=== PATIENT | male | born 1960 | race Caucasian/White ===

== ENCOUNTER 2021-06-04 20:26 | Emergency (ER) | payer OTHER ==
[~2021-06-04] VITALS: Ht 185.5 cm; Wt 108.9 kg
[2021-06-04] MEDS ORDERED: LACTATED RINGERS 1,000 ML IV ONE ×2 (20:45→22:00)
--- NOTE | 2021-06-04 20:47 | ED Trauma-Multisystem ---
General Stated Complaint: FELL OUT OF HUNTING STAND Activation Level: Level 2 Source of Information: Patient, EMS History of Present Illness Date Seen by Provider: Jun 04, 2021 Time Seen by Provider: 20:25 Initial Comments PT ARRIVES VIA [facility]--CERVICAL COLLAR IN PLACE, BUT NO BACK BOARD PT FELL 12-15 FEET OUT OF TREE STAND/HUNTING DEER--WAS HUNTING ALONE AND NO CELL PHONE STATES HE LANDED FLAT ON HIS BACK DENIES LOSS OF CONSCIOUSNESS DENIES NECK PAIN C/O SEVERE DIFFUSE BACK PAIN, ESPECIALLY LOWER BACK C/O BILATERAL RIB PAIN C/O SHORTNESS OF BREATH NO PARESTHESIAS OR MOTOR DEFICITS NO NAUSEA/VOMITING NO LEG OR ARM PAIN NO ABDOMINAL PAIN EMS REPORT THAT PT WALKED APPROXIMATELY 1/2 MILE OUT OF THE [facility], AND WAS FOUND BY 'S DEPUTY, SITTING IN A DITCH ALONGSIDE A ROAD--IS ESTIMATED THAT HE SAT THERE FOR APPROXIMATELY AN HOUR PT THINKS HE FELL AROUND 1800 TONIGHT. PT STATES HE TOOK A KAYAK INTO THE HUNTING AREA, THEN WALKED OUT. PT HAS HISTORY OF PRIOR LUMBAR SPINE SURGERY, AND LEFT SHOULDER SURGERY LEVEL 2 TRAUMA ACTIVATION PRIOR TO PT'S ARRIVAL PCP: ROSARIO MAGANA IN [place]--PT STATES HE LIVES IN [place] Allergies and Home Medications Allergies Coded Allergies: No Known Drug Allergies (Unverified , 06/04/21) Patient Home Medication List Home Medication List Reviewed: Yes Fluoxetine HCl (Fluoxetine HCl) 40 Mg Capsule, (Reported) Entered as Reported by: JEAN POST on 06/04/212100 Last Action: New Order Modafinil (Modafinil) 100 Mg Tablet, (Reported) Entered as Reported by: JEAN POST on 06/04/212100 Last Action: New Order Review of Systems Review of Systems Constitutional: no symptoms reported Eyes: No Symptoms Reported Ears: No Symptoms Reported Nose: No Symptoms Reported Mouth: No Symptoms Reported Throat: No Symptoms to Report Respiratory: see HPI, short of breath Cardiovascular: See HPI Gastrointestinal: no symptoms reported; No abdominal pain, No nausea, No vomiting Musculoskeletal: see HPI, back pain Skin: no symptoms reported Psychiatric/Neurological: No Symptoms Reported, Anxiety; Denies Cognitive Dysfunction, Denies Headache, Denies Numbness, Denies Tingling, Denies Weakness Past Unyywyj-Equlgh-Pndelu Hx Patient Social History Tobacco Use?: Yes Tobacco type used: Cigarettes Smoking Status: Current Someday Smoker (1 PACK/WEEK) Alcohol Use?: Yes (2-3 DRINKS, 2-3 TIMES A WEEK) Alcohol Frequency: Couple times a week Past Medical History Surgery/Hospitalization HX: LEFT SHOULDER SURGERY LUMBAR SPINE SURGERY Surgeries: Yes Orthopedic Respiratory: No Cardiac: No Neurological: No Reproductive Disorders: Yes (ED) Genitourinary: Yes (ED) Gastrointestinal: No Musculoskeletal: Yes (LUMBAR SPINE SURGERY, LEFT SHOULDER SURGERY) Chronic Back Pain Endocrine: No HEENT: No Cancer: No Psychosocial: Yes Anxiety, Depression Integumentary: No Blood Disorders: No Physical Exam Vital Signs Vital Signs - First Documented 06/04/21 20:27 Temp 36.0 Pulse 75 Resp 22 B/P (MAP) 142/93 (109) Pulse Ox 95 O2 Delivery Nasal Cannula O2 Flow Rate 2.00 Height, Weight, BMI Height: '" Weight: lbs. oz. kg; BMI Method: General Appearance: Other (MOANING, WAILING, VERY DRAMATIC, TALKING NON-STOP, WANTING WATER HE IS BEING WHEELED IN BY EMS. CLOTHING SOAKED AND PT IS COVERED IN DIRT/MUD; HOSTILE AND DEMANDING. ) Head: No Evidence of Injury Ears, Nose, Throat: Hearing Grossly Normal, No Evidence of ENT Injury, No Dental Injury Neck: Other (CERVICAL COLLAR IN PLACE) Cardiovascular: Regular Rate, Rhythm, No Edema, No JVD, No Murmur Respiratory: Normal Breath Sounds (BREATH SOUNDS EQUAL BILATERALLY), No Accessory Muscle Use, No Respiratory Distress, Other (DIFFUSE BILATERAL CHEST TENDERNESS, BUT NO EXTERNAL EVIDENCE OF TRAUMA, NO CREPITANCE OR SUB Q AIR. ) Gastrointestinal: Soft, Hernia (REDUCIBLE UMBILICAL HERNIA), Tenderness (SIGNIFICANT RUQ AND LUQ TENDERNESS--MORE TENDER IN RIGHT UPPER QUADRANT. NO EXTERNAL EVIDENCE OF TRAUMA TO ABDOMEN) Back: CVA Tenderness (L), CVA Tenderness (R), Decreased Range of Motion, Vertebral Tenderness, Other (DIFFUSE TENDERNESS TO LUMBAR AREA. NO EXTERNAL EVIDENCE OF TRAUMA. NO DEFORMITY. ) Extremity: Normal Capillary Refill, Normal Inspection, Normal Range of Motion, Non Tender, No Calf Tenderness, No Pedal Edema Neurologic/Psychiatric: Alert, Oriented x3, No Motor/Sensory Deficits, stump blower II- XII Norm as Tested Skin: Normal Color, Warm/Dry Focused Exam Lactate Level 06/04/21 20:44: Lactic Acid Level 1.62 Lactic Acid Level Laboratory Tests Test 06/04/21 20:44 Lactic Acid Level 1.62 MMOL/L (0.50-2.00) Progress/Results/Core Measures Results/Orders Lab Results Laboratory Tests Test 06/04/21 20:44 06/04/21 22:12 Range/Units White Blood Count 17.0 H 4.3-11.0 10^3/uL Red Blood Count 4.68 4.30-5.52 10^6/uL Hemoglobin 14.7 13.3-17.7 g/dL Hematocrit 43 40-54 % Mean Corpuscular Volume 93 80-99 fL Mean Corpuscular Hemoglobin 31 25-34 pg Mean Corpuscular Hemoglobin Concent 34 32-36 g/dL Red Cell Distribution Width 12.8 10.0-14.5 % Platelet Count 272 130-400 10^3/uL Mean Platelet Volume 10.2 9.0-12.2 fL Prothrombin Time 13.3 12.2-14.7 SEC INR Comment 1.0 0.8-1.4 Activated Partial Thromboplast Time 22 L 24-35 SEC Fibrinogen 446 221-496 MG/DL D-Dimer 15.42 H 0.00-0.49 UG/ML Sodium Level 147 H 135-145 MMOL/L Potassium Level 4.1 3.6-5.0 MMOL/L Chloride Level 111 H 98-107 MMOL/L Carbon Dioxide Level 23 21-32 MMOL/L Anion Gap 13 5-14 MMOL/L Blood Urea Nitrogen 19 H 7-18 MG/DL Creatinine 1.47 H 0.60-1.30 MG/DL Estimat Glomerular Filtration Rate 49 BUN/Creatinine Ratio 13 Glucose Level 117 H 70-105 MG/DL Lactic Acid Level 1.62 0.50-2.00 MMOL/L Calcium Level 10.2 H 8.5-10.1 MG/DL Phosphorus Level 2.2 L 2.3-4.7 MG/DL Magnesium Level 2.2 1.6-2.4 MG/DL Total Bilirubin 0.5 0.1-1.0 MG/DL Direct Bilirubin 0.2 0.0-0.3 MG/DL Indirect Bilirubin 0.3 MG/DL Aspartate Amino Transf (AST/SGOT) 44 H 5-34 U/L Alanine Aminotransferase (ALT/SGPT) 32 0-55 U/L Alkaline Phosphatase 69 40-136 U/L Total Creatine Kinase 666 H 30-200 U/L Total Protein 7.4 6.4-8.2 GM/DL Albumin 4.4 3.2-4.5 GM/DL Serum Alcohol < 10 <10 MG/DL Urine Color YELLOW Urine Clarity CLEAR Urine pH 6.0 5-9 Urine Specific [place] 1.025 H 1.016-1.022 Urine Protein 2+ H NEGATIVE Urine Glucose (UA) NEGATIVE NEGATIVE Urine Ketones NEGATIVE NEGATIVE Urine Nitrite NEGATIVE NEGATIVE Urine Bilirubin NEGATIVE NEGATIVE Urine Urobilinogen 0.2 < = 1.0 MG/DL Urine Leukocyte Esterase NEGATIVE NEGATIVE Urine RBC (Auto) 2+ H NEGATIVE Urine RBC 5-10 H /HPF Urine WBC 2-5 /HPF Urine Squamous Epithelial Cells 0-2 /HPF Urine Crystals NONE /LPF Urine Calcium Oxalate Crystals MODERATE H /LPF Urine Bacteria TRACE /HPF Urine Casts PRESENT /LPF Urine Hyaline Casts 0-2 H /LPF Urine Mucus SMALL H /LPF Urine Culture Indicated YES Urine Opiates Screen NEGATIVE NEGATIVE Urine Oxycodone Screen NEGATIVE NEGATIVE Urine Methadone Screen NEGATIVE NEGATIVE Urine Propoxyphene Screen NEGATIVE NEGATIVE Urine Barbiturates Screen NEGATIVE NEGATIVE Ur Tricyclic Antidepressants Screen NEGATIVE NEGATIVE Urine Phencyclidine Screen NEGATIVE NEGATIVE Urine Amphetamines Screen NEGATIVE NEGATIVE Urine Methamphetamines Screen NEGATIVE NEGATIVE Urine Benzodiazepines Screen NEGATIVE NEGATIVE Urine Cocaine Screen NEGATIVE NEGATIVE Urine Cannabinoids Screen NEGATIVE NEGATIVE My Orders Orders - GISELLE LOPES DO Ed Iv/Invasive Line Start (06/04/21 20:34) Lactated Ringers (Lr 1000 Ml Iv Solution (06/04/21 20:45) Chest 1 View, Ap/Pa Only (06/04/21 20:36) Pelvis (06/04/21 20:36) Ct Head/Cervical Spine Wo (06/04/21 20:36) Ct Thoracic/Lumbar Spine Wo (06/04/21 20:36) Ct Chest/Abdomen/Pelvis W (06/04/21 20:36) Cbc No Diff (06/04/21 20:44) Fibrin Degradation Products (06/04/21 20:44) Fibrinogen (06/04/21 20:44) Protime With Inr (06/04/21 20:44) Partial Thromboplastin Time (06/04/21 20:44) Alcohol (06/04/21 20:44) Basic Metabolic Panel (06/04/21 20:44) Creatine Kinase (06/04/21 20:44) Liver Panel (06/04/21 20:44) Magnesium (06/04/21 20:44) Phosphorus (06/04/21 20:44) Lactic Acid Analyzer (06/04/21 20:44) Red Cells Leukocytes Reduced (06/04/21 20:44) Type And Screen (06/04/21 20:44) Drug Screen Stat (Urine) (06/04/21 20:55) Urinalysis (06/04/21 20:55) Iohexol Injection (Omnipaque 350 Mg/Ml 1 (06/04/21 21:00) Received Contrast (Hold Metformin- Contr (06/04/21 21:00) Ns (Ivpb) (Sodium Chloride 0.9% Ivpb Bag (06/04/21 21:00) Fentanyl Inj (Sublimaze Injection) (06/04/21 21:19) Ed Iv/Invasive Line Start (06/04/21 21:54) Lactated Ringers (Lr 1000 Ml Iv Solution (06/04/21 22:00) Fentanyl Inj (Sublimaze Injection) (06/04/21 22:15) Urine Culture (06/04/21 22:12) Medications Given in ED Current Medications Medications Dose Ordered Sig/Isaiah Route Start Time Stop Time Status Last Admin Dose Admin Fentanyl Citrate 100 mcg STK-MED ONCE .ROUTE 06/04/21 21:19 06/04/21 21:23 DC 06/04/21 21:20 50 MCG Iohexol 100 ml ONCE ONCE IV 06/04/21 21:00 06/04/21 21:01 DC 06/04/21 21:15 100 ML Lactated Ringer's 1,000 ml @ 0 mls/hr Q0M ONCE IV 06/04/21 20:45 06/04/21 20:46 DC 06/04/21 20:44 0 MLS/HR Lactated Ringer's 1,000 ml @ 0 mls/hr Q0M ONCE IV 06/04/21 22:00 06/04/21 22:01 DC 06/04/21 21:57 0 MLS/HR Sodium Chloride 100 ml ONCE ONCE IV 06/04/21 21:00 06/04/21 21:01 DC 06/04/21 21:15 80 ML Vital Signs/I&O 9/17/21 9/17/21 20:27 23:35 Temp 36.0 36.7 Pulse 75 76 Resp 22 22 B/P (MAP) 142/93 (109) 153/86 Pulse Ox 95 93 O2 Delivery Nasal Cannula Room Air O2 Flow Rate 2.00 Progress Progress Note : Progress Note GIVEN IV FLUIDS GIVEN FENTANYL FOR PAIN --PAIN IMPROVED WITH FENTANYL, AND LAYING STILL. O2 SAT 94% ON ROOM AIR--UP TO 97% ON 2L/NC NO DETERIORATION IN PT'S CONDITION PT REMAINED HOSTILE THROUGHOUT ER STAY, AND PT ADAMANTLY AND REPEATEDLY REFUSES TO ALLOW ME TO EXAMINE HIS BACK, STATES "I'M NOT ROLLING OVER" DID COMPLETELY EXAMINE PT'S BACK PRIOR TO TRANSFER, AND NO EXTERNAL EVIDENCE OF TRAUMA, BUT DIFFUSE LUMBAR TENDERNESS, AND PARAVERTEBRAL TENDERNESS. NO DEFORMITY. Diagnostic Imaging Comments CT SCANS--PER RADIOLOGIST REPORTS AT 2128 CT HEAD/CERVICAL SPINE-- FINDINGS: CT HEAD: Ventricles and sulci are within normal limits for size. There is no intracranial hemorrhage identified. There is no abnormal mass effect or shift of midline structures. IMPRESSION: Unremarkable CT of the head. CT CERVICAL SPINE: Multiple contiguous axial CT images of the cervical spine were obtained with sagittal and coronal reformatted images produced. The cervical curvature and alignment are within normal limits. The vertebral body heights and disc spaces are maintained without evidence of fracture or subluxation. There is no paraspinous hematoma. There is mild diffuse degenerative disc and facet disease most pronounced at the C3-C4 level. IMPRESSION: No CT evidence of acute cervical spinal abnormality. CT THORACIC/LUMBAR SPINE-- FINDINGS: Thoracic spinal curvature and alignment are unremarkable. Thoracic vertebral body heights and disc spaces are maintained without evidence of acute fracture or paraspinous hematoma. There is mild dependent atelectasis in the lungs. Lumbar spinal curvature and alignment are also unremarkable. There are mildly displaced left spinous process fractures from L1 through L5 with mild enlargement of the left psoas muscle indicating psoas muscle hematoma. There is diffuse disc bulging and endplate spurring at L4-L5 resulting in moderate spinal stenosis with a chronic appearance. IMPRESSION: 1. Mildly displaced left transverse process fractures from L1 through L5 with associated left psoas muscle hematoma. 2. There is also chronic appearing L4-L5 spinal stenosis secondary to disc bulging and endplate spurring. 3. No definite acute thoracic spinal abnormality is identified. CT CHEST/ABDOMEN/PELVIS- CT CHEST: There is no evidence of great vessel injury or mediastinal hematoma. No significant pleural or pericardial fluid is identified. There is no pneumothorax. There has been previous surgery in the left scapula. There are mildly displaced bilateral 10th and 11th rib fractures. There is no pneumothorax. IMPRESSION: Bilateral 10th and 11th rib fractures without pneumothorax. Otherwise, no acute thoracic injury is identified. CT ABDOMEN/PELVIS: Probable cysts are present within the left lobe of the liver. No focal liver laceration is identified. There is no evidence of gallbladder, pancreatic, adrenal gland or splenic lesion. There is also probable dominant cyst in the left kidney. Both kidneys excrete contrast without evidence of perinephric hematoma. No adrenal gland abnormality is identified. There is no free fluid within the abdomen or pelvis. There is enlargement of the left psoas muscle compatible with intramuscular hematoma fractures involving L1-L5 left transverse processes. Partially opacified urinary bladder is unremarkable without evidence of perivesicular contrast extravasation. There is lower lumbar degenerative disc disease. Note is made of fat-containing umbilical hernia. IMPRESSION: Left transverse process fractures throughout the lumbar spine with associated left psoas hematoma. Otherwise, no acute abdominal or pelvic visceral injury is identified. XRAYS--PER RADIOLOGIST REPORTS AT 2200 CXR-- Findings: Asymmetric elevation of the right hemidiaphragm. Visualized lungs are clear. No pleural effusion or pneumothorax. There is no abnormal alignment of the cardiac silhouette. No displaced fracture within the clavicles or visualized ribs. Impression: No acute traumatic injury in the chest by portable radiography. PELVIS-- FINDINGS: No diastasis of the symphysis pubis or SI joints. No hip dislocation. Mild degenerative arthritis of the hips. Scattered pelvic phleboliths. No displaced fracture. IMPRESSION: No displaced fracture or traumatic diastasis in the pelvis. Reviewed: Reviewed by [facility] Departure Communication (Admissions) SPOKE WITH POLLS OR SURVEYS INTERVIEWER--NO BEDS ARE AVAILABLE HERE 2135--SPOKE WITH DR. SIN, TRAUMA SURGEON, ADVISES TRANSFER 2136--CALLED [facility] 2140--SPOKE WITH DR. HERNANDEZ, ER PHYSICIAN, ACCEPTS PT FOR TRANSFER 2144--EMS CONTACTED FOR TRANSPORT 2334--EMS HERE FOR TRANSPORT. Impression Primary Impression: S/P FALL FROM TREE STAND Additional Impressions: FALL FROM HUNTING STAND Fracture of multiple ribs of both sides MULTIPLE LUMBAR SPINE TRANSVERSE PROCESS FRACTURES TRAUMATIC LEFT PSOAS MUSCLE HEMATOMA Dehydration Disposition: 02 XFER SHT-TRM HOSP Condition: Stable Transfer Transfer Reason: Diversion Transfer Facility: [place], [place] Method of Transfer: EMS Departure-Patient Inst. Referrals: BIANCA HULL MD (PCP/Family) Primary Care Physician GISELLE LOPES DO Jun 04, 2021 20:46
[2021-06-04 20:59] LABS: HEMATOCRIT 43 % (40-54); HEMOGLOBIN 14.7 g/dL (13.3-17.7); MEAN CORPUSCULAR HEMOGLOBIN 31 pg (25-34); MEAN CORPUSCULAR HGB CONC 34 g/dL (32-36); MEAN CORPUSCULAR VOLUME 93 fL (80-99); MEAN PLATELET VOLUME 10.2 fL (9.0-12.2); PLATELET COUNT 272 10^3/uL (130-400)
[2021-06-04] MEDS ORDERED: HOLD METFORMIN - RECEIVED CONTRAST 20 ML VIAL IV SCH (21:00)
[2021-06-04] MEDS ORDERED: IOHEXOL 350 MG/ML 100 ML (OMNIPAQUE 350) VIAL IV ONE (21:00)
[2021-06-04] MEDS ORDERED: NS 100 ML (IVPB) BAG IV ONE (21:00)
[2021-06-04] MEDS ORDERED: FLUO40CA (21:01)
[2021-06-04] MEDS ORDERED: MODA100T27 (21:01)
[2021-06-04 21:11] LABS: CHLORIDE 111 MMOL/L (98-107); POTASSIUM 4.1 MMOL/L (3.6-5.0); SODIUM 147 MMOL/L (135-145)
[2021-06-04 21:12] LABS: ALBUMIN 4.4 GM/DL (3.2-4.5); CALCIUM 10.2 MG/DL (8.5-10.1)
--- NOTE | 2021-06-04 21:13 | Diagnostic Imaging Report ---
PROCEDURE: CT head and CT cervical spine without contrast. TECHNIQUE: Multiple contiguous axial images were obtained through the brain and cervical spine without the use of intravenous contrast. Sagittal and coronal reformations through the cervical spine were then performed. Auto Exposure Controls were utilized during the CT exam to meet ALARA standards for radiation dose reduction. INDICATION: Fall with head and neck injury. CT HEAD: CT images of the head were obtained. FINDINGS: CT HEAD: Ventricles and sulci are within normal limits for size. There is no intracranial hemorrhage identified. There is no abnormal mass effect or shift of midline structures. IMPRESSION: Unremarkable CT of the head. CT CERVICAL SPINE: Multiple contiguous axial CT images of the cervical spine were obtained with sagittal and coronal reformatted images produced. The cervical curvature and alignment are within normal limits. The vertebral body heights and disc spaces are maintained without evidence of fracture or subluxation. There is no paraspinous hematoma. There is mild diffuse degenerative disc and facet disease most pronounced at the C3-C4 level. IMPRESSION: No CT evidence of acute cervical spinal abnormality. Dictated by: Dictated on workstation # [id number]
[2021-06-04 21:14] LABS: GLUCOSE 117 MG/DL (70-105); TOTAL PROTEIN 7.4 GM/DL (6.4-8.2)
[2021-06-04 21:15] LABS: CARBON DIOXIDE 23 MMOL/L (21-32)
--- NOTE | 2021-06-04 21:15 | Diagnostic Imaging Report ---
PROCEDURE: CT thoracic and lumbar spine without contrast. TECHNIQUE: Multiple contiguous axial images were obtained through the thoracic and lumbar spine without the use of intravenous contrast. Sagittal and coronal reformations were then performed. All CT scans use one or more of the following dose optimizing techniques: automated exposure control, MA and/or KvP adjustment based on patient size and exam type or iterative reconstruction. INDICATION: Fall with back injury and pain. FINDINGS: Thoracic spinal curvature and alignment are unremarkable. Thoracic vertebral body heights and disc spaces are maintained without evidence of acute fracture or paraspinous hematoma. There is mild dependent atelectasis in the lungs. Lumbar spinal curvature and alignment are also unremarkable. There are mildly displaced left spinous process fractures from L1 through L5 with mild enlargement of the left psoas muscle indicating psoas muscle hematoma. There is diffuse disc bulging and endplate spurring at L4-L5 resulting in moderate spinal stenosis with a chronic appearance. IMPRESSION: 1. Mildly displaced left transverse process fractures from L1 through L5 with associated left psoas muscle hematoma. 2. There is also chronic appearing L4-L5 spinal stenosis secondary to disc bulging and endplate spurring. 3. No definite acute thoracic spinal abnormality is identified. Dictated by: Dictated on workstation # [id number]
[2021-06-04 21:16] LABS: BILIRUBIN,TOTAL 0.5 MG/DL (0.1-1.0)
[2021-06-04 21:17] LABS: PHOSPHORUS 2.2 MG/DL (2.3-4.7)
[2021-06-04 21:18] LABS: ALKALINE PHOSPHATASE 69 U/L (40-136); CREATININE SERUM 1.47 MG/DL (0.60-1.30); GFR ESTIMATED 49
[2021-06-04 21:19] LABS: BILIRUBIN,DIRECT 0.2 MG/DL (0.0-0.3); BILIRUBIN,INDIRECT 0.3 MG/DL; BUN/CREATININE RATIO 13
[2021-06-04] MEDS ORDERED: fentaNYL INJ 100 MCG/2 ML AMP ONE (21:19)
[2021-06-04 21:21] LABS: ALANINE AMINOTRANSFERASE 32 U/L (0-55); CREATINE KINASE 666 U/L (30-200); MAGNESIUM 2.2 MG/DL (1.6-2.4)
[2021-06-04 21:22] LABS: FIBRIN DEGRADATION PRODUCTS 15.42 UG/ML (0.00-0.49); PROTHROMBIN TIME PATIENT 13.3 SEC (12.2-14.7)
--- NOTE | 2021-06-04 21:26 | Diagnostic Imaging Report ---
PROCEDURE: CT chest, abdomen, and pelvis with contrast. TECHNIQUE: Multiple contiguous axial images were obtained through the chest, abdomen, and pelvis after the administration of intravenous contrast. Auto Exposure Controls were utilized during the CT exam to meet ALARA standards for radiation dose reduction. INDICATION: Trauma/fall. CT CHEST: There is no evidence of great vessel injury or mediastinal hematoma. No significant pleural or pericardial fluid is identified. There is no pneumothorax. There has been previous surgery in the left scapula. There are mildly displaced bilateral 10th and 11th rib fractures. There is no pneumothorax. IMPRESSION: Bilateral 10th and 11th rib fractures without pneumothorax. Otherwise, no acute thoracic injury is identified. CT ABDOMEN/PELVIS: Probable cysts are present within the left lobe of the liver. No focal liver laceration is identified. There is no evidence of gallbladder, pancreatic, adrenal gland or splenic lesion. There is also probable dominant cyst in the left kidney. Both kidneys excrete contrast without evidence of perinephric hematoma. No adrenal gland abnormality is identified. There is no free fluid within the abdomen or pelvis. There is enlargement of the left psoas muscle compatible with intramuscular hematoma fractures involving L1-L5 left transverse processes. Partially opacified urinary bladder is unremarkable without evidence of perivesicular contrast extravasation. There is lower lumbar degenerative disc disease. Note is made of fat-containing umbilical hernia. IMPRESSION: Left transverse process fractures throughout the lumbar spine with associated left psoas hematoma. Otherwise, no acute abdominal or pelvic visceral injury is identified. Dictated by: Dictated on workstation # [id number]
--- NOTE | 2021-06-04 21:43 | Diagnostic Imaging Report ---
CHEST 1 VIEW, AP/PA ONLY Indication: Trauma. Comparison: None available. Findings: Asymmetric elevation of the right hemidiaphragm. Visualized lungs are clear. No pleural effusion or pneumothorax. There is no abnormal alignment of the cardiac silhouette. No displaced fracture within the clavicles or visualized ribs. Impression: No acute traumatic injury in the chest by portable radiography. Dictated by: Dictated on workstation # [id number]
--- NOTE | 2021-06-04 21:44 | Diagnostic Imaging Report ---
INDICATION: Trauma, pelvic pain. COMPARISON: CT pelvis performed concurrently. FINDINGS: No diastasis of the symphysis pubis or SI joints. No hip dislocation. Mild degenerative arthritis of the hips. Scattered pelvic phleboliths. No displaced fracture. IMPRESSION: No displaced fracture or traumatic diastasis in the pelvis. Dictated by: Dictated on workstation # [id number]
[2021-06-04] MEDS ORDERED: fentaNYL INJ 100 MCG/2 ML AMP IVP ONE (22:15)
[2021-06-04 22:17] LABS: BILIRUBIN,URINE NEGATIVE (NEGATIVE); CLARITY,URINE CLEAR; COLOR,URINE YELLOW; GLUCOSE, URINE (UA) NEGATIVE (NEGATIVE); KETONES,URINE NEGATIVE (NEGATIVE); LEUKOCYTE ESTERASE ,URINE NEGATIVE (NEGATIVE); NITRITE,URINE NEGATIVE (NEGATIVE); PROTEIN,URINE 2+ (NEGATIVE)
[2021-06-04 22:30] LABS: BACTERIA,URINE TRACE /HPF
[2021-06-04 22:31] LABS: CALCIUM OXALATE CRYSTALS,UR MODERATE /LPF; HYALINE CASTS, URINE 0-2 /LPF; SQUAMOUS EPITHELIAL CELL,UR 0-2 /HPF
[2021-06-04 22:32] LABS: AMPHETAMINE SCREEN, URINE NEGATIVE (NEGATIVE); BARBITURATE SCREEN URINE NEGATIVE (NEGATIVE); BENZODIAZEPINES SCREEN URINE NEGATIVE (NEGATIVE); CANNABINOID SCREEN, URINE NEGATIVE (NEGATIVE); COCAINE SCREEN URINE NEGATIVE (NEGATIVE); METHADONE STAT NEGATIVE (NEGATIVE); METHAMPHETAMINE SCREEN URINE S NEGATIVE (NEGATIVE); OPIATE SCREEN URINE NEGATIVE (NEGATIVE); OXYCODONE STAT NEGATIVE (NEGATIVE); PROPOXYPHENE STAT NEGATIVE (NEGATIVE); TRICYCLIC ANTIDEPRESSANTS SCRE NEGATIVE (NEGATIVE)
[2021-06-04 23:35] VITALS: BP 153/86
== END 2021-06-04 23:35 | disposition short-term general hospital (02) ==
LOC: ER 20:27
DX: S22.43XA Multiple fractures of ribs, bilateral, initial encounter for closed fracture (principal); S32.010A Wedge compression fracture of first lumbar vertebra, initial encounter for closed fracture; S32.020A Wedge compression fracture of second lumbar vertebra, initial encounter for closed fracture; S32.030A Wedge compression fracture of third lumbar vertebra, initial encounter for closed fracture; S32.040A Wedge compression fracture of fourth lumbar vertebra, initial encounter for closed fracture; S32.050A Wedge compression fracture of fifth lumbar vertebra, initial encounter for closed fracture; E86.0 Dehydration; F32.9 Major depressive disorder, single episode, unspecified; F41.9 Anxiety disorder, unspecified; F17.210 Nicotine dependence, cigarettes, uncomplicated; Z79.899 Other long term (current) drug therapy; W14.XXXA Fall from tree, initial encounter
CPT/HCPCS: 70450; 71045; 71260; 72125; 72128; 72131; 72170; 74177; 80048; 80076; 80306; 81000; 82550; 83605; 83735; 84100; 85027; 85379; 85384; 85610; 85730; 86850; 86900; 86901; 86920; 87088; 96361; 96374; 96376; 99285; G0480; 36415; 80320